=== PATIENT | male | born 1975 ===

== ENCOUNTER 2023-07-14 12:42 | Outpatient (REF) | payer SELFPAY ==
[2023-07-14 16:37] LABS: Anion Gap 12 (12-20); Blood Urea Nitrogen 13 mg/dL (9-16); Calcium 10.5 mg/dL (8.4-10.2); Carbon Dioxide 28 mmol/L (22-29); Chloride 106 mmol/L (96-108); Estimated Glomerular Filt Rate > 60; Glucose Random 103 mg/dL (60-115); Potassium 4.7 mmol/L (3.3-5.1); Sodium 141 mmol/L (135-145)
[2023-07-14 16:45] LABS: Microalbum/Creatinine Ratio Ur 2.9 ug/mg cr (<30)
[2023-07-14 16:48] LABS: Cholesterol 150 mg/dL (<200); HDL Cholesterol 38 mg/dL (>40); LDL Cholesterol Calculated 93 mg/dL (<100); Triglycerides 98 mg/dL (<150)
[2023-07-14 16:55] LABS: TSH reflex Free T4 1.84 uIU/mL (0.32-4.0); Vitamin D 25-OH Total 55.7 ng/mL (>30)
[2023-07-14 17:30] LABS: Reflex LDLD? No
== END 2023-07-14 12:43 | disposition home or self-care (01) ==
LOC: HO.HHCL 12:42
PROVIDERS: Visit Provider Internal Medicine
DX: E11.65 Type 2 diabetes mellitus with hyperglycemia (principal); Z79.4 Long term (current) use of insulin; E55.9 Vitamin D deficiency, unspecified
CPT/HCPCS: 36415; 80048; 80061; 82043; 82306; 82570; 84443